=== PATIENT | female | born 1990 | race Two or more races ===

== ENCOUNTER 2025-04-24 15:30 | Outpatient (RCR) | payer MEDICAID, SELFPAY ==
--- NOTE | 2025-04-08 15:12 | PT.OIERPT ---
PT OP Initial Eval Patient Information Outpatient Physical Therapy Treatment Date: 04/08/25 Visit Reasons: Right knee Medical Diagnosis: R knee pain Treatment Dx #1: R knee pain Start of Care: 04/08/25 Date of Onset: 10/22/25 Smoking Status Smoking Status: Never smoker Initial Assessment Subjective: Pt is 34 yr old female s/p R knee A/S in September reports pain and difficulty with stairs. Pt had dislocated the patella previously. She can walk required distances but the knee feels stiff and sometimes feels wobbly. PMH: none reported Imaging: pre-op MRI Complex tear anterior horn lateral meniscus, Degeneration body of the lateral meniscus, Marrow edema/bone contusion medial patella, 16mm lateral subluxation of patella, with partial tear medial patellar retinaculum, 4 mm bone fragment off the intercondylar spines, Mild strain anterior cruciate ligament Pt goal: no pain with stairs Objective: R knee ArOM: Flexion: full Extension: full Maxi's: negative Patella compression: negative Varus/valgus: positive varus mild gapping Step down: pain Assessment: Pt presents with pain of patella borders with descending stairs and mild varus play consistent with patellofemoral pain. Pt may benefit from skilled therapy to meet goals and has fair rehab potential. Short Term and [employer] Goals 1. Ind with HEP 2. Ascend/descend 1 flight of stairs without R knee pain Treatment Plan ? 1. Manual therapy ? 2. Therex ? 3. Modalities as indicated, moist heat, ice, estim Frequency and Duration: 2x a week for 12 visits plus the eval Certification Dates: 04/08/25 to 07/07/25 Procedure Charges OP PT Eval Mod Complex 30 minutes: Yes
--- NOTE | 2025-04-15 17:39 | PT.ODAYNRPT ---
PT Outpatient Daily Note OP Daily Note Outpatient Physical Therapy Treatment Date: 04/15/25 Visit Reasons: Right knee Subjective: Same as time of evaluation Objective: See F/S for therex Assessment: Low tissue irritability in the clinic with lunging and squatting on total gym Plan: Continue per POC Length of Time (minutes) of Treatment: 30 Minutes Procedure Charges Therapeutic Exercise 30 minutes: Yes
--- NOTE | 2025-04-21 18:25 | PT.ODAYNRPT ---
PT Outpatient Daily Note OP Daily Note Outpatient Physical Therapy Treatment Date: 04/21/25 Visit Reasons: Right knee Subjective: Some tolerable R quad soreness after last visit Objective: See F/S for therex Assessment: Low tissue irritability in the clinic with lunging and squatting on total gym Plan: Continue per POC Length of Time (minutes) of Treatment: 30 Minutes Procedure Charges Therapeutic Exercise 30 minutes: Yes
--- NOTE | 2025-04-24 16:03 | PT.ODAYNRPT ---
PT Outpatient Daily Note OP Daily Note Outpatient Physical Therapy Treatment Date: 04/24/25 Visit Reasons: Right knee Subjective: Pt reports r knee is doing better, notices less pain. Objective: Please see flow sheet for ther ex list. Assessment: Progressed lateral stepping exercise, pt completed with good tolerance. Plan: Continue with poC. Length of Time (minutes) of Treatment: 30 Minutes Procedure Charges Therapeutic Exercise 30 minutes: Yes
== END 2025-04-25 23:59 | disposition home or self-care (01) ==
LOC: CPTX 15:30
PROVIDERS: PCP Orthopaedic Surgery; Referring Provider Orthopaedic Surgery; Visit Provider Orthopaedic Surgery
DX: M25.561 Pain in right knee (principal); M25.661 Stiffness of right knee, not elsewhere classified; Z98.890 Other specified postprocedural states
CPT/HCPCS: 97110; 97162

== ENCOUNTER 2025-05-14 14:30 | Outpatient (RCR) | payer MEDICAID, SELFPAY ==
--- NOTE | 2025-04-27 16:09 | PT.ODAYNRPT ---
PT Outpatient Daily Note OP Daily Note Outpatient Physical Therapy Treatment Date: 04/27/25 Visit Reasons: right knee surgery Subjective: Pt reports R knee is doing ok, still has occasional pain and notices at time when she is standing knee vannesa. Objective: Please see flow sheet for ther ex list. Assessment: Pt reported quad muscle fatigue post TG squat exercise, denied pain. Plan: Continue with pOC, progress per post op protocol. Length of Time (minutes) of Treatment: 30 Minutes Procedure Charges Therapeutic Exercise 30 minutes: Yes
--- NOTE | 2025-05-04 15:45 | PT.ODAYNRPT ---
PT Outpatient Daily Note OP Daily Note Outpatient Physical Therapy Treatment Date: 05/04/25 Visit Reasons: right knee surgery Subjective: Pt reports R knee is doing better but notices she is guarded when doing activities such as squatting. Pt also shared that when she has been on her feet for a long time she notices she limps. Objective: Please see flow sheet for ther ex list. Assessment: Pt favors L LE when performing squat exercise, corrects post verbal cues and modified squat depth. Plan: Continue with poC, assess response to treatment. Length of Time (minutes) of Treatment: 30 Minutes Procedure Charges Therapeutic Exercise 30 minutes: Yes
--- NOTE | 2025-05-07 15:28 | PT.ODAYNRPT ---
PT Outpatient Daily Note OP Daily Note Outpatient Physical Therapy Treatment Date: 05/07/25 Visit Reasons: right knee surgery Subjective: Overall better, the knee feels more stable. Objective: See F/S for therex Assessment: Pt able to squat to about 40% depth with low to no pain of R knee today x20 reps Plan: Continue with POC Length of Time (minutes) of Treatment: 30 Minutes Procedure Charges Therapeutic Exercise 30 minutes: Yes
--- NOTE | 2025-05-12 15:44 | PT.ODAYNRPT ---
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 Pt mentioned that she feels the pain behind the knee cap. Objective: Please see flow sheet for ther ex list. Assessment: Performed knee cap mobilization, no pain no TTP. Plan: Continue with poC. Length of Time (minutes) of Treatment: 30 Minutes Procedure Charges Therapeutic Exercise 30 minutes: Yes
--- NOTE | 2025-05-14 16:13 | PT.ODAYNRPT ---
PT Outpatient Daily Note OP Daily Note Outpatient Physical Therapy Treatment Date: 05/14/25 Visit Reasons: right knee surgery Subjective: Pt reports knee is doing ok, has good and bad days. Objective: Please see flow sheet for ther ex list. Assessment: Pt reports aggravating knee symptoms with squats exercise. Plan: Continue with POC. Length of Time (minutes) of Treatment: 30 Minutes Procedure Charges Therapeutic Exercise 30 minutes: Yes
== END 2025-05-25 23:59 | disposition home or self-care (01) ==
LOC: CPTX 14:30
PROVIDERS: PCP Orthopaedic Surgery; Referring Provider Orthopaedic Surgery; Visit Provider Orthopaedic Surgery
DX: M25.561 Pain in right knee (principal); M25.661 Stiffness of right knee, not elsewhere classified; Z98.890 Other specified postprocedural states
CPT/HCPCS: 97110

== ENCOUNTER 2025-06-03 13:00 | Outpatient (RCR) | payer MEDICAID, SELFPAY ==
--- NOTE | 2025-05-26 12:06 | PT.ODAYNRPT ---
PT Outpatient Daily Note OP Daily Note Outpatient Physical Therapy Treatment Date: 05/26/25 Visit Reasons: RT knee injury Subjective: Overall better, the knee feels more stable. Objective: See F/S for therex Assessment: Pt able to squat to about 40% depth with more pain of R knee today x20 reps Plan: Continue with POC Length of Time (minutes) of Treatment: 30 Minutes Procedure Charges Therapeutic Exercise 30 minutes: Yes
--- NOTE | 2025-05-28 12:45 | PT.ODAYNRPT ---
PT Outpatient Daily Note OP Daily Note Outpatient Physical Therapy Treatment Date: 05/28/25 Visit Reasons: RT knee injury Subjective: Overall better some days, but pain with twisting Objective: See F/S for therex Assessment: Pt able to squat to about 40% depth with more pain of R knee today x20 reps Plan: Continue with POC Length of Time (minutes) of Treatment: 30 Minutes Procedure Charges Therapeutic Exercise 30 minutes: Yes
--- NOTE | 2025-06-01 17:35 | PT.ODAYNRPT ---
PT Outpatient Daily Note OP Daily Note Outpatient Physical Therapy Treatment Date: 06/01/25 Visit Reasons: RT knee injury Subjective: Overall better some days, but pain with twisting Objective: See F/S for therex Assessment: Pt able to squat to about 40% depth with more pain of R knee today x20 reps Plan: Continue with POC Length of Time (minutes) of Treatment: 30 Minutes Procedure Charges Therapeutic Exercise 30 minutes: Yes
--- NOTE | 2025-06-03 13:32 | PT.ODS1RPT ---
PT OP Progress/Discharge Note Date of Service: 06/03/25 Progress Note/DC Note Progress Note/Discharge Note: DC Note Patient Information Visit Reasons: RT knee injury Service Continue Service or Discharge: Discharge Discharge Date: 06/03/25 Status Subjective: Overall better some days, but pain with twisting and stairs. Objective: See F/S for therex R knee AROM: Extension: full Flexion: full Strength: Quads: 3+/5 HS: 4-/5 TTP: mild of medial patella border Assessment: Pt has attended / visits with slow progress with therapy goals. Pt is independent with HEP and walking. She has pain with descending stairs and hasn't met the goal of 1 flight up/down without pain. There is more lateral patella excursion than the other knee consistent with dislocation. Pt has decreased quad strength due to patella compression pain. Progress with goals has plateaued. Thank you for your referrals Plan: D/C with HEP Procedure Charges Therapeutic Exercise 30 minutes: Yes
== END 2025-06-25 23:59 | disposition home or self-care (01) ==
LOC: CPTX 13:00
PROVIDERS: PCP Orthopaedic Surgery; Referring Provider Orthopaedic Surgery; Visit Provider Orthopaedic Surgery
DX: M25.561 Pain in right knee (principal); M25.661 Stiffness of right knee, not elsewhere classified
CPT/HCPCS: 97110